=== PATIENT | female | born 1950 | race Caucasian/White ===

== ENCOUNTER → 2017-04-27 | Outpatient (POV) | LOC: OUTPT 00:01 | PROVIDERS: ATTEND Otolaryngology | DX: H91.90 Unspecified hearing loss, unspecified ear (principal) | CPT/HCPCS: 92557; 92567 ==

== ENCOUNTER → 2017-05-11 | Outpatient (POV) | LOC: OUTPT 00:01 | PROVIDERS: ATTEND Otolaryngology | DX: H91.90 Unspecified hearing loss, unspecified ear (principal) | CPT/HCPCS: 92552 ==

== ENCOUNTER → 2017-06-15 | Outpatient (POV) | LOC: OUTPT 00:01 | PROVIDERS: ATTEND Otolaryngology | DX: H91.90 Unspecified hearing loss, unspecified ear (principal) | CPT/HCPCS: 92553; 92567 ==

== ENCOUNTER 2017-07-16 12:23 | Outpatient (CLI) ==
--- NOTE | 2017-07-16 14:19 | US ---
EXAM: Bilateral carotid artery Doppler History: Dizziness. Technique: Multiple sonographic images through the bilateral internal carotid arteries were obtained . Color duplex Doppler was used to interrogate vascular flow. Findings: The right ICA peak systolic velocity is within normal limits measuring 0.9 meters per second. The ri ght ICA/cca PSV ratio is normal at 1.5. The right vertebral artery is patent and demonstrates antegr anthony flow. Crawford scale images demonstrate mild plaque buildup within the right internal carotid artery . The left ICA peak systolic velocity is within normal limits measuring 1.0 meters per second. The lef t ICA/cca PSV ratio is normal at 1.7. The left vertebral artery is patent and demonstrates antegrade flow. Crawford scale images demonstrate mild plaque buildup within the left internal carotid artery Impression: No significant hemodynamic stenosis of the bilateral internal carotid arteries
--- NOTE | 2017-07-16 14:35 | DI ---
Exam: Bilateral rib series three views each. HISTORY: Fall, rib pain. Comparison: Chest x-ray two-view 03/09/2014. Findings: Site of pain is not specified, nor is a marker present. Five images of the bilateral ribs are submitted. These demonstrate a diffusely osteopenic patient. There is a nondisplaced fracture i nvolving the lateral aspect of the left seventh rib. No right rib fracture or dislocation is identif ied. There is no underlying pneumothorax or lobar consolidation. Calcified granulomata are noted. Degenerative findings and mild undulating scoliosis are noted in the spine. Surgical clips are in th e right upper abdomen. Impressions: Nondisplaced fracture of the lateral left seventh rib. No pneumothorax or lobar consolidation.
--- NOTE | 2017-07-17 13:19 | MRI ---
EXAM: Brain MRI without contrast. HISTORY: Hydrocephalus. COMPARISON: CT neck 04/08/[address] cervical spine 09/30/2011. TECHNIQUE: Multiplanar, multisequence MR images were acquired of the brain without contrast. FINDINGS: There is no midline shift. There is moderate to marked lateral, third and fourth ventricu lomegaly which was present on the previous neck CT from 04/08/2010 and has probably progressed. The distance between the frontal horns on the present study is 6.1 cm and the third ventricle measures 1. 4 cm in transverse diameter. There is also a localized 1.2 cm AP by 2.1 cm TX by 4 cm CC extra-axial fluid collection in the right midline posterior fossa consistent with a librado cisterna magna. There i s a small localized extra-axial fluid collection in the right anterior inferior posterior fossa that extends from below the inferior margin of the right fourth ventricle to the posterior fossa. This fo llows cerebrospinal fluid on all pulse sequences and measures 1.8 cm x 1.4 cm x 2 cm CC. The appeara nce is suggestive of a small arachnoid cyst which is associated with mild scalloping of the anterior inferior right cerebellum and inferior right vermis. The lateral and third ventriculomegaly is associated with mild effacement of the sulci in both cerebr al hemispheres and there is mild effacement of the cerebellar fissures bilaterally. There is a small cerebral aqueduct. There is flattening of the anterior superior pituitary gland which has a concave superior border and there is anterior and inferior displacement of the pituitary infundibulum associ ated with the enlarged third ventricle. There is also upward bowing of the corpus callosum due to th e lateral ventriculomegaly. This produces superior displacement of both superomedial frontal lobes w hich are mildly compressed at the convexity. The brain parenchyma shows minimal periventricular FLAI R hyperintensity that is considered within normal variation. Several small scattered FLAIR hyperinte nsities are present in the supratentorial white matter compatible with minor leukomalacia. There is no abnormal dark gradient echo signal to indicate intracranial hemorrhage. There is no diffusion rest riction to suggest acute hypoperfusion or infarction. Contrast was not administered. There are no intraorbital masses. There has been previous lens surgery bilaterally. Paranasal sinuses, middle ears and mastoids are unremarkable. Flow voids are present in the major intracranial arteries and dural venous sinuses. IMPRESSION: 1. Unexpected result. Moderate to marked ventriculomegaly which is probably chronic and has likely progressed compared to the previous neck CT where it was partially visualized. No prior head CTs or brain MRIs are available to compare for interval change. Neurosurgical consultation is advised. 2. No intracranial mass, hemorrhage or acute cerebral infarct. 3. Minor leukomalacia likely due to chronic ischemic small vessel disease. 4. Partial empty sella.
== END 2017-07-16 12:24 | disposition home or self-care (01) ==
LOC: RAD 12:23
PROVIDERS: ATTEND Internal Medicine
DX: R42 Dizziness and giddiness (principal); R07.89 Other chest pain; G91.9 Hydrocephalus, unspecified; W19.XXXA Unspecified fall, initial encounter

== ENCOUNTER 2017-08-03 10:26 | Emergency (ER) ==
[2017-08-03 10:33] VITALS: BP 127/75; TEMP 99.9
[2017-08-03 10:51] VITALS: BMI 31.9
--- NOTE | 2017-08-03 11:08 | ED.PDOC ---
General ED Provider: Dr. YURY RAMIREZ Chief Complaint: Non-specific Complaint Stated Complaint: CC:Falling episodes. HPI: Patient presents with her daughter providing the history of increasing frequency of falling episodes in recent past. Most recent episode this morning. States she fell first when getting out of bed, striking her head. Managed to pull herself up the walked into her kitchen, took her dog for a walk outside then when coming back fell in her living room, striking her head again. After this she had emesis the managed to get up to a chair where she remained until her daughter arrive for an anticipated visit. Currently complains of mild headache. Has know hx of ventricuomegaly due to hydrocephalus/ Apparently previously recommeded that she have a ventricular shunt placed. Pt Refused. This morning patient fell between her bed and inside wall-managed to get up. Time Seen by Physician: 11:00 Mode of Arrival: Wheelchair Information Source: Patient Exam Limitations: No limitations Primary Care Provider: PEDRO AZAR Nursing and Triage Documentation Reviewed and Agree: Yes Reviewed sepsis parameters & appropriate labs ordered?: Yes System Inflammatory Response Syndrome: Not Applicable Sepsis Protocol: For patient's 13 years and over: Temp is 96.8 and below OR 101 and greater Pulse >90 BPM Resp >20/minute Acutely Altered Mental Status Are patient's symptoms suggestive of a new infection, such as: -Pneumonia -Skin, Soft Tissue -Endocarditis -UTI -Bone, Joint Infection -Implantable Device -Acute Abdominal Infection -Wound Infection -Meningitis -Blood Stream Catheter Infection -Unknown System Inflammatory Response Syndrome: Not Applicable Review of Systems - Review Of Systems Constitutional: Reports: Weakness. Denies: Chills, Diaphoresis, Fever, Malaise Eyes: Reports: No symptoms Ears, Nose, Mouth, Throat: Reports: No symptoms Respiratory: Reports: No symptoms Cardiac: Reports: No symptoms GI: Reports: No symptoms, Diarrhea, Nausea, Vomiting : Reports: No symptoms Musculoskeletal: Reports: No symptoms Skin: Reports: No symptoms Neurological: Reports: No symptoms Endocrine: Reports: No symptoms Hematologic/Lymphatic: Reports: No symptoms All Other Systems: Reviewed and Negative Past Medical History - Past Medical History Endocrine: Reports: DM 2 Cardiovascular: Reports: None Respiratory: Reports: None Hematological: Reports: None Gastrointestinal: Reports: None Genitourinary: Reports: None Neuro/Psych: 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) Musculoskeletal: Reports: None Cancer: Reports: None Last Menstrual Period: n/a - Surgical History General Surgical History: Reports: Unknown - Family History Family History: Reports: Unknown - Social History Smoking Status: Former smoker Hx Substance Use: No Alcohol Screening: None Physical Exam - Physical Exam Appearance: Well-appearing, Obese Ill-appearing: Mild Pain Distress: None Eyes: VIRGIL, EOMI, Conjunctiva clear ENT: Ears normal, Nose normal, Oropharynx normal Neck: Supple (+_Rt Carotid Bruit) Respiratory: Airway patent, Breath sounds clear, Breath sounds equal Cardiovascular: RRR, Pulses normal, No rub, No murmur GI/: Soft, Nontender, No masses, Bowel sounds normal Musculoskeletal: Normal strength, ROM intact, No edema Skin: Warm, Dry, Normal color, Pale Neurological: Sensation intact, Motor intact Psychiatric: Affect appropriate Re-Evaluation - Re-Evaluation Time of Re-Evaluation: 12:00 Status: Unchanged Vital Signs Stable: Yes Appearance: NAD Lungs: Clear Skin: Warm and Dry Neuro: Alert and Oriented X3 CV: RRR Physician Notification - Case Discussed Physician Notified: Dr Ruperto Shetty-Neurosurg [facility] Time of Notification: 13:20 (Discussed case; agreed to accept patient in Transfer to [facility]-to 5th floor Neurosurg step down unit) Admit/Transition Orders Entered by ED Provider: Yes (Transfer to [facility]) Critical Care Note - Critical Care Note Total Time (mins): 60 Course - Course Hematology/Chemistry: 08/03/17 12:00 08/03/17 12:00 Orders, Labs, Meds: Lab Review 08/03/17 08/03/17 08/03/17 12:00 12:00 12:00 WBC 6.87 RBC 3.79 L Hgb 11.0 L Hct 32.4 L MCV 85.5 MCH 29.0 MCHC 34.0 RDW Coeff of Vielka 13.7 Plt Count 207 Immature Gran % (Auto) 0.6 Neut % (Auto) 40.3 Lymph % (Auto) 46.9 [place] % (Auto) 10.0 Eos % (Auto) 1.6 Baso % (Auto) 0.6 Immature Gran # (Auto) 0.0 Neut # (Auto) 2.8 Lymph # (Auto) 3.2 [place] # (Auto) 0.7 Eos # (Auto) 0.1 Baso # (Auto) 0.0 PT 10.4 INR 1.02 Sodium 135 L Potassium 3.5 Chloride 101 Carbon Dioxide 24 Anion Gap 13.5 BUN 9 Creatinine 0.90 Estimated GFR (MDRD) 62.00 BUN/Creatinine Ratio 10.00 Glucose 280 H Calcium 8.8 Magnesium 2.0 Total Bilirubin 0.6 AST 19 ALT 28 Alkaline Phosphatase 64 Total Protein 6.8 Albumin 3.1 L Globulin 3.7 Albumin/Globulin Ratio 0.84 Orders Category Date Time Status EKG-(ED ONLY) Stat CARDIO 08/03/17 11:40 Completed CBC W/ AUTO DIFF Stat LAB 08/03/17 12:00 Completed CMP [COMPREHENSIVE METABOLIC PANEL] Stat LAB 08/03/17 12:00 Completed MAGNESIUM Stat LAB 08/03/17 12:00 Completed PT WITH INR Stat LAB 08/03/17 12:00 Completed UA [URINALYSIS C & S IF INDICATED] Stat LAB 08/03/17 11:[address] HEAD W/O CONTRAST Stat RADS 08/03/17 11:40 Completed Vital Signs: Temp Pulse Resp BP Pulse Ox 08/03/17 10:26 99.9 F H 85 16 127/75 96 Departure - Departure Time of Disposition: 13:30 Disposition: TSF SHORT-TRM HOSP Discharge Problem: Acute subdural hematoma, Acquired cerebral ventriculomegaly, Falling episodes Instructions: Subdural Hematoma (ED), Hydrocephalus (DC) Condition: Stable Pt referred to PMD for follow-up: Yes IPMP verified?: No Referrals: RUPERTO SHETTY [REFERRING] - Additional Instructions: [address] Shetty Neurosderek -discussed case, reviewed lab/agreed to accept patient in Transfer Discussed with Family Dr Shetty advised pts neurologist Dr Marquez FAMILY LIFE EDUCATOR here placed call to Dr Marquez Allergies/Adverse Reactions: Allergies iodine Allergy (Severe, Verified 08/03/17 10:33) Seizures Home Medications: Ambulatory Orders Aspirin [Children's Aspirin] 81 mg PO DAILY 08/03/17 Duloxetine HCl [Cymbalta] 30 mg PO DAILY 08/03/17 Gabapentin 300 mg PO DAILY PRN 08/03/17 Transfer Form Completed: Yes Disposition Discussed With: Patient, Family Additional Information: Once result of CT scan reviewed, Discussed with patient and her daughter. Explained need to transfer to Neurosurgical service. Requested [facility]. RN placed call at [facility] Spoke with Radiologist Dr Damon at 12:16 PM who confirmed results. [address] Shetty Neurosur -discussed case, reviewed lab/agreed to accept patient in Transfer Discussed with Family Dr Shetty advised pts neurologist Dr Marquez FAMILY LIFE EDUCATOR here placed call to Dr Marquez
--- NOTE | 2017-08-03 12:20 | CT ---
EXAM: CT BRAIN HISTORY: Falls, headache TECHNIQUE: CT brain without intravenous contrast. 5-mm axial sections with Reformations. COMPARISON: No comparison CT head. Comparison is made to 07/16/2017 MRI brain. FINDINGS: Redemonstration of moderate ventriculomegaly/hydrocephalus which does not appear noticeably changed. There is minimal high attenuation along the posterior aspect of the interhemispheric falx and this ex tends along the right tentorium most consistent with subdural blood product given history of fall and headache. There is no intraventricular blood or definite subarachnoid bleed. No evidence of recent large vessel distribution ischemic infarction or midline shift. The skull is intact. IMPRESSION: 1. Small subdural hematoma along the posterior interhemispheric falx and right tentorium. 2. Stable hydrocephalus. 3. No skull fracture identified. CRITICAL RESULT: I spoke with ordering physician Raquel by phone about these findings at 12:16 p.m . on 08/03/2017.
== END 2017-08-03 15:02 | disposition short-term general hospital (02) ==
LOC: ED 10:26
DX: G93.89 Other specified disorders of brain (principal); S06.5X0A Traumatic subdural hemorrhage without loss of consciousness, initial encounter; W19.XXXA Unspecified fall, initial encounter; R29.6 Repeated falls; G91.9 Hydrocephalus, unspecified; R53.1 Weakness; E11.9 Type 2 diabetes mellitus without complications
CPT/HCPCS: 36415; 80053; 81001; 83735; 85025; 85610; 87086; 93005; 93010; 99285

== ENCOUNTER 2018-02-21 08:21 | Day surgery (SDC) ==
[2018-02-21 09:03] VITALS: TEMP 98.4
[2018-02-21] MEDS: LIDOCAINE 1% 20 ML MDV ID STA (09:25)
[2018-02-21] MEDS ORDERED: DIPRIVAN 20 ML VIAL IVP ONE (11:00)
[2018-02-21] MEDS ORDERED: VERSED ONE (11:00)
[2018-02-21 13:39] VITALS: BP 122/78
--- NOTE | 2018-02-22 13:22 | OP ---
PROCEDURE: COLONOSCOPY TO THE CECUM. ENDOSCOPIST: Ginny QUEZADA M.D. INDICATION: HISTORY OF POLYPS. INSTRUMENT: PC-190. MEDICATION: PER ANESTHESIA. PROCEDURE: The patient was positioned for colonoscopy. The digital rectal exam was negative. The colonoscope was inserted through the anus and advanced to the cecum. The prep was poor throughout. Significant solids. Did not appear to adhere to the prep instructions or the split dose prepping. Retroflex exam was normal. Withdrawal time 7 minutes and 50 seconds. PLAN: 1. She will need repeat colonoscopy with a 2 day prep and adherence to the diet recommendations. CC: DR. NISSA CEJA
== END 2018-02-21 12:30 | disposition home or self-care (01) ==
LOC: SURG 08:21
PROVIDERS: ATTEND Internal Medicine Gastroenterology
DX: Z86.010 Personal history of colon polyps (principal)

== ENCOUNTER 2018-08-23 09:59 | Outpatient (CLI) ==
[2018-08-23 11:54] VITALS: BMI 34.8
== END 2018-08-23 10:00 | disposition home or self-care (01) ==
LOC: DIETCN 09:59
PROVIDERS: ATTEND Nurse Practitioner Family
DX: E11.9 Type 2 diabetes mellitus without complications (principal)
CPT/HCPCS: 97802